=== PATIENT | male | born 1990 | race Caucasian/White ===

== ENCOUNTER 2018-01-24 18:18 | Emergency (ER) | payer OTHER ==
[2018-01-24] MEDS ORDERED: ONDANSETRON (ODT) 4 MG TAB ODT (21:28)
== END 2018-01-24 21:45 | disposition left against medical advice (07) ==
LOC: E/R 18:18
DX: L02.414 Cutaneous abscess of left upper limb (principal); F11.23 Opioid dependence with withdrawal
CPT/HCPCS: 93005; 99284